=== PATIENT | male | born 1935 | race Caucasian/White ===

== ENCOUNTER 2019-05-03 06:35 | Day surgery (SDC) | payer MEDICARE, OTHER ==
[~2019-05-03] VITALS: Ht 182.9 cm; Wt 83.9 kg
[2019-05-03] MEDS ORDERED: LOSARTAN POTASS25 MG PO (07:15)
[2019-05-03] MEDS ORDERED: OMEPRAZOLE20 MG PO (07:15)
[2019-05-03] MEDS ORDERED: VENTOLIN HFA18 GM INH (07:15)
--- NOTE | 2019-05-03 08:14 | NUR ---
05/03/19 0814 Heydi Berg 0807 PT ARRIVED TO PACU ON 3L VIA MASK, PT WAKES EASILY TO VERBAL STIMULI AND THEN EASILY FALLS BACK TO SLEEP. VSS.
--- NOTE | 2019-05-04 08:38 | OR ---
[facility] [address] [place], [place] [address] Signed DATE OF OPERATION: 05/03/2019 SURGEON: Kingston Parker MD PREOPERATIVE DIAGNOSES: 1. Positive Cologuard test November 2018. 2. Family history of colon cancer (aunt). 3. History of colonic polyps and episodic rectal bleeding. POSTOPERATIVE DIAGNOSES: 1. Polyps x2 (possibly three). 2. Diverticular changes. 3. Internal hemorrhoids. PROCEDURES: Total colonoscopy to cecum with cold snare polypectomy x2 and cold morcellation polypectomy x1. ANESTHESIA: Intravenous sedation fentanyl 100 mcg, Versed 3 mg. INDICATION: This 84-year-old white man is a patient of Dr. Jaycee Naik. Last fall in November. He underwent a Cologuard test, which was positive. It is notably he has had episodic rectal bleeding, but no other bowel problems. He does have family history of colon cancer in aunts. He has undergone polypectomy in [place], [place] in the past, but it has been several years. The patient spent the winter in [place], [place] and has returned and now here for colonoscopy. The viral pandemic has truncated his ability for travel lately, but he appears to be free of any symptoms of coronavirus flu. He is here to undergo colonoscopy on the basis of his positive Cologuard test. He understands the risks of bleeding, infection, and perforation related to colonoscopy and wished to proceed. FINDINGS: The prep was good. Complete colonoscopy was undertaken to the cecum without question. There was a very small mucosal lesion of the ileocecal valve, which was excised with cold morcellation technique. In addition, there was a sessile polyp at splenic flexure and one at 40 cm, both of which were excised with cold snare technique. Retroflexed view confirmed internal hemorrhoidal changes but no evidence of active bleeding or other abnormality. Electronically Signed By: KINGSTON PARKER MD 05/04/19 0838 PATIENT NAME: GEOVANY WOODS OPERATIVE REPORT DATE OF : 39 REPORT #: [id number] PHYSICIAN: KINGSTON PARKER MD PCP: JAYCEE NAIK MD REPORT IS CONFIDENTIAL AND NOT TO BE RELEASED WITHOUT AUTHORIZATION [facility] [address] [place], [place] [address] Signed PROCEDURE IN DETAIL: The patient was brought to the endoscopy suite and placed in lateral decubitus position. With the team fully donned in protective gear of the moment due to the pandemic, he was given intravenous sedation with full cardiopulmonary monitoring. Digital rectal examination was normal. An Olympus video colonoscope was passed in the rectum and manipulated throughout the colon ultimately intubating the cecum itself. The ileocecal valve had a small mucosal lesion, which was suggestive of a polyp. This was excised with cold morcellation technique. It is uncertain if it was truly an adenomatous polyp, however. The scope was withdrawn and approximately splenic flexure a sessile polyp was noted, this was excised with cold snare technique. Specimen passed for pathology. It measured less than a cm certainly. Further withdrawal showed another similar such polyp at 40 cm, this was excised with cold snare technique and retrieved and passed for pathology as well. There were few scattered diverticula of the sigmoid. Upon withdrawal and retroflexed view of the rectum showed internal hemorrhoidal changes as well. There was no sign of bleeding. Scope was removed. The patient was taken to recovery room in good condition. CONCLUSION DIAGNOSIS: Polyps x3. PLAN: Recommend repeat colonoscopy in 3 years, sooner if clinically indicated. He will return to the ongoing care of Dr. Jaycee Naik. Kingston Parker MD JM/MODL /[id number] cc: Jaycee Naik MD Copies: Electronically Signed By: KINGSTON PARKER MD 05/04/19 0838 PATIENT NAME: GEOVANY WOODS OPERATIVE REPORT DATE OF : 39 REPORT #: [id number] PHYSICIAN: KINGSTON PARKER MD PCP: JAYCEE NAIK MD REPORT IS CONFIDENTIAL AND NOT TO BE RELEASED WITHOUT AUTHORIZATION [address] [address] Signed ~ Electronically Signed By: KINGSTON PARKER MD 05/04/19 0838 PATIENT NAME: GEOVANY WOODS OPERATIVE REPORT DATE OF : 39 REPORT #: [id number] PHYSICIAN: KINGSTON PARKER MD PCP: JAYCEE NAIK MD REPORT IS CONFIDENTIAL AND NOT TO BE RELEASED WITHOUT AUTHORIZATION
--- NOTE | 2019-05-04 14:33 | PATH ---
[facility] [address] [place], [place] [address] Signed SPECIMEN(S): A SPLENIC FLEXURE POLYP SPECIMEN(S): B POSSIBLE CECAL POLYP SPECIMEN(S): C COLON POLYP AT 40 CM SPECIMEN SOURCE: A. SPLENIC FLEXURE POLYP B. POSSIBLE CECAL POLYP C. COLON POLYP AT 40 CM CLINICAL HISTORY: Pre Op: Occ. Rectal bleeding, + Cologuard test. Fam Hx colon CA, Hx pt polyps. Post Op: Two polyps, possible 3. MICROSCOPIC DESCRIPTION: Histologic sections of all submitted blocks are examined by light microscopy. These findings, together with the gross examination, support the pathologic diagnosis. FINAL PATHOLOGIC DIAGNOSIS: A. Colon, splenic flexure, polyp, polypectomy: - Fragments of tubular adenoma. - Negative for high-grade dysplasia or malignancy. B. Colon, cecum, possible polyp, polypectomy: - Colonic mucosa with mucosal lymphoid aggregate. - Negative for dysplasia or malignancy. C. Colon, polyp at 40 cm, polypectomy: - Tubular adenoma. - Negative for high-grade dysplasia or malignancy. NAL:glc:C2NR GROSS DESCRIPTION: Three specimens are received in three containers, labeled "LH." A. The specimen, labeled "LH, #1," and designated on the requisition "splenic flexure," is received in formalin and consists of a single davis soft tissue polypoid fragment(s) that measure 0.6 cm in greatest dimension. The specimen is entirely submitted in cassette (A1). B. The specimen, labeled "LH, #2," and designated on the requisition "possible cecal polyp," is received in formalin and consists of a single davis soft tissue fragment(s) that measure 0.3 cm in greatest dimension. The specimen is entirely submitted in cassette (B1). C. The specimen, labeled "LH, #3," and designated on the requisition "colon polyp at 40 cm," is received in formalin and consists of a single davis soft PATIENT NAME: GEOVANY WOODS PATHOLOGY DATE OF : 39 REPORT #: [id number] PHYSICIAN: AC PATHOLOGY PCP: ELLIE MEYER MD REPORT IS CONFIDENTIAL AND NOT TO BE RELEASED WITHOUT AUTHORIZATION [facility] [address] [place], [place] [address] Signed tissue polypoid fragment(s) that measure 0.4 cm in greatest dimension. The specimen is entirely submitted in cassette (C1). AT (under the direct supervision of a pathologist) The Gross Description was prepared using a voice recognition system. The report was reviewed for accuracy; however, sound-alike word errors, addition and/or deletions may occur. If there is any question about this report, please contact Client Services. PERFORMING LABORATORY: The technical component was performed by [facility], [address] [place] [id number] (Volcanology Teacher: Rebecca Callaway MD; CLIA# [id number]). [facility], [address] [address] (CLIA# [id number]). Diagnostician: Usha Tan MD Pathologist Electronically Signed 05/04/2019 Copies: ~ PATIENT NAME: GEOVANY WOODS PATHOLOGY DATE OF : 39 REPORT #: [id number] PHYSICIAN: AC PATHOLOGY PCP: ELLIE MEYER MD REPORT IS CONFIDENTIAL AND NOT TO BE RELEASED WITHOUT AUTHORIZATION
== END 2019-05-03 08:45 | disposition home or self-care (01) ==
LOC: OPS 06:35 → DS 06:42 → OPS 06:45
PROVIDERS: Surgery
PROC: 0DBH8ZZ Excision of Cecum, Via Natural or Artificial Opening Endoscopic (ICD-10-PCS; 2019-05-03)
PROC: 0DBE8ZZ Excision of Large Intestine, Via Natural or Artificial Opening Endoscopic (ICD-10-PCS; 2019-05-03)
PROC: 0DBL8ZZ Excision of Transverse Colon, Via Natural or Artificial Opening Endoscopic (ICD-10-PCS; principal; 2019-05-03 06:45)
DX: D12.3 Benign neoplasm of transverse colon (principal); K57.30 Diverticulosis of large intestine without perforation or abscess without bleeding; K64.8 Other hemorrhoids; J45.909 Unspecified asthma, uncomplicated; I10 Essential (primary) hypertension; K21.9 Gastro-esophageal reflux disease without esophagitis; C43.9 Malignant melanoma of skin, unspecified; Z88.0 Allergy status to penicillin; Z88.1 Allergy status to other antibiotic agents; Z79.899 Other long term (current) drug therapy
CPT/HCPCS: 99153; G0500; J2250; J3010; J7121

== ENCOUNTER 2024-04-16 11:56 | Day surgery (SDC) | payer MEDICARE, OTHER ==
[~2024-04-16] VITALS: Ht 190.5 cm; Wt 86.4 kg
[~2024-04-16 11:56] MED LIST: IBLOOD GLUCOSE TEST STRIP 1 EA TEST VI PRN; LACTATED RINGER'S 1,000 ML IV SCH; LATANOPROST2.5 ML OPTH; LIDOCAINE HCL 1% 5 ML SDV INJ ONE; LOSARTAN POTASS25 MG PO; MIDAZOLAM HCL 5 MG/5 ML VIAL IV PRN; OMEPRAZOLE20 MG PO; VENTOLIN HFA18 GM INH; fentaNYL citrate 100 MCG/2 ML VIAL IV PRN
[2024-04-16 12:22] VITALS: BP 187/73
[2024-04-16] MEDS ORDERED: fentaNYL citrate 100 MCG/2 ML VIAL ONE (12:53)
[2024-04-16] MEDS ORDERED: MIDAZOLAM HCL 5 MG/5 ML VIAL ONE (12:54)
--- NOTE | 2024-04-16 13:53 | NUR ---
04/16/24 1353 Neelima Rivera 1344-PT ARRIVES TO PACU VIA STRETCHER, RESTING ON LT SIDE. PT REACTIVE TO STIMULI BUT RESTING W/ EYES CLOSED, VSS ON RA, RR EVEN AND UNLABORED. PT PASSING GAS.
[2024-04-16 14:16] VITALS: BP 161/72
--- NOTE | 2024-04-17 13:16 | OR ---
[facility] [address] [place], [place] [address] Signed DATE OF OPERATION: 04/16/2024 SURGEON: Kingston Parker MD PREOPERATIVE DIAGNOSES: 1. Colon surveillance. 2. History of polyps and diverticulosis. POSTOPERATIVE DIAGNOSIS: Polyps x4 and diverticulosis. PROCEDURE: Total colonoscopy to cecum with cold morcellation polypectomy x4. ANESTHESIA: Intravenous sedation fentanyl 100 mcg and Versed 4 mg. INDICATION: This 89-year-old white man is a patient of Dr. Naik and underwent colonoscopy in 2019 where he was found to have a tubular adenoma and diverticulosis. He is currently symptom free and has no family history of colon cancer. He had undergone polypectomy in the [facility] area prior to all of that. He is admitted at this time to undergo surveillance colonoscopy despite his advanced age as he is physiologically far younger than 89. He understands the risk of bleeding, infection, and perforation related to colonoscopy and wished to proceed. FINDINGS: The prep was quite good. Complete colonoscopy was undertaken of the cecum. There were numerous diverticula of the sigmoid and left colon. He had four polyps in aggregate, one proximal descending colon, two in the sigmoid and one in the rectosigmoid. He had no other abnormalities than the diverticulosis. DESCRIPTION OF PROCEDURE: The patient was brought to the endoscopy suite and placed in lateral decubitus position, given intravenous sedation to point of slurred speech and nystagmus with full cardiopulmonary monitoring. Digital rectal examination was normal. An Olympus video colonoscope was passed in the rectum and manipulated throughout the colon noting diverticula of the sigmoid and left colon. Scope was ultimately passed to the cecum. The ileocecal valve and appendiceal orifice were normal. Scope was then Electronically Signed By: KINGSTON PARKER MD 04/17/24 1316 PATIENT NAME: GEOVANY WOODS OPERATIVE REPORT DATE OF : 39 REPORT #: [id number] PHYSICIAN: KINGSTON PARKER MD PCP: ELLIE NAIK MD REPORT IS CONFIDENTIAL AND NOT TO BE RELEASED WITHOUT AUTHORIZATION [facility] [address] [place], [place] [address] Signed withdrawn. Examination throughout showed no sign of abnormality to the proximal descending colon where a small polyp was noted. This was excised with cold morcellation technique. Further withdrawal showed diverticula of the sigmoid as well as two obvious adenomatous polyps particularly confirmed by narrow band imaging. Both were excised with cold morcellation technique. Further withdrawal showed rectosigmoid polyps similarly excised. Retroflexed view was undertaken, which was normal. Scope was removed. The patient was taken to the recovery room in good condition. CONCLUDING DIAGNOSIS: Polyps x4, diverticulosis. PLAN: Recommend repeat colonoscopy in seven years if clinically appropriate based on what would be an advanced age of 89 years. Colonoscopy can be undertaken sooner as appropriate. Recommend a high-fiber diet too. He will return to the ongoing care of Dr. Naik. MD SHARON Love/DESEAN /[id number] cc: Dr. Naik Copies: ~ Electronically Signed By: KINGSTON PARKER MD 04/17/24 1316 PATIENT NAME: PEGGYGEOVANY ALLISON OPERATIVE REPORT DATE OF : 39 REPORT #: [id number] PHYSICIAN: KINGSTON PARKER MD PCP: ELLIE NAIK MD REPORT IS CONFIDENTIAL AND NOT TO BE RELEASED WITHOUT AUTHORIZATION
--- NOTE | 2024-04-18 13:16 | PATH ---
[facility] [address] [facility] [place], [place] [address] Signed SPECIMEN(S): A DESCENDING COLON POLYP SPECIMEN(S): B SIGMOID POLYP SPECIMEN(S): C SIGMOID POLYP SPECIMEN(S): D RECTOSIGMOID POLYP SPECIMEN SOURCE: A. DESCENDING COLON POLYP B. SIGMOID POLYP C. SIGMOID POLYP D. RECTOSIGMOID POLYP CLINICAL HISTORY: History of colon polyp. Post : polyp FINAL PATHOLOGIC DIAGNOSIS: A. Ascending colon polyp: - Fragments of hyperplastic polyp. B. Sigmoid polyp: - Tubular adenoma. C. Sigmoid polyp: - Tubular adenoma. D. Rectosigmoid polyp: - Hyperplastic polyp. AMB MICROSCOPIC EXAMINATION: Histologic sections of all submitted blocks are examined by light microscopy. These findings, together with the gross examination, support the pathologic diagnosis. GROSS DESCRIPTION: A. The specimen, labeled and designated "Peggy Green, descending colon polyp," is received in formalin and consists of seven davis soft tissue fragments, ranging from 0.2-0.3 cm. Entirely submitted in (A1). B. The specimen, labeled and designated "Peggy Green, sigmoid polyp," is received in formalin and consists of one davis soft tissue fragment, 0.3 cm. Entirely submitted in (B1). C. The specimen, labeled and designated "Peggy Green, sigmoid polyp #2," is received in formalin and consists of three davis soft tissue fragments, ranging from 0.2-0.3 cm. Entirely submitted in (C1). PATIENT NAME: PEGGYGEOVANY COOPER PATHOLOGY DATE OF : 39 REPORT #: [id number] PHYSICIAN: AC CHOE PCP: ELLIE MEYER MD REPORT IS CONFIDENTIAL AND NOT TO BE RELEASED WITHOUT AUTHORIZATION [facility] [address] [place], [place] [address] Signed D. The specimen, labeled and designated "Peggy Green, rectosigmoid polyp," is received in formalin and consists of two davis soft tissue fragments, ranging from 0.2-0.3 cm. Entirely submitted in (D1). AB (under the direct supervision of a pathologist) The Gross Description was prepared using a voice recognition system. The report was reviewed for accuracy; however, sound-alike word errors, addition and/or deletions may occur. If there is any question about this report, please contact Client Services. ADDITIONAL NOTES: Immunohistochemical and/or in situ hybridization studies if performed in this case included appropriate positive controls that reacted as expected. This test was developed and its performance characteristics determined by [facility]. It has not been cleared or approved by the U.S. Food and Drug Administration. The FDA has determined that such clearance or approval is not necessary. This test is used for clinical purposes. It should not be regarded as investigational or for research. [facility] is certified under the Clinical Laboratory Improvement Amendments of 1988 (CLIA) as qualified to perform high complexity clinical laboratory testing. PERFORMING LABORATORY: Technical component was performed by [facility], [address] [place] [address] (CLIA# [id number]). Professional interpretation was performed by [facility] [address] [place] [id number] Diagnostician: Rebecca Callaway MD Pathologist Electronically Signed 04/18/2024 Copies: ~ PATIENT NAME: GEOVANY GREEN PATHOLOGY DATE OF : 39 REPORT #: [id number] PHYSICIAN: AC PATHOLOGY PCP: ELLIE MEYER MD REPORT IS CONFIDENTIAL AND NOT TO BE RELEASED WITHOUT AUTHORIZATION
== END 2024-04-16 14:28 | disposition home or self-care (01) ==
LOC: DS 11:56
PROVIDERS: ATTEND Surgery
PROC: 0DBN8ZZ Excision of Sigmoid Colon, Via Natural or Artificial Opening Endoscopic (ICD-10-PCS; 2024-04-16)
PROC: 0DBM8ZZ Excision of Descending Colon, Via Natural or Artificial Opening Endoscopic (ICD-10-PCS; principal; 2024-04-16 13:00)
DX: Z12.11 Encounter for screening for malignant neoplasm of colon (principal); D12.5 Benign neoplasm of sigmoid colon; K63.5 Polyp of colon; K57.30 Diverticulosis of large intestine without perforation or abscess without bleeding; I10 Essential (primary) hypertension; Z79.899 Other long term (current) drug therapy; Z88.0 Allergy status to penicillin; Z88.1 Allergy status to other antibiotic agents; Z86.0101 Personal history of adenomatous and serrated colon polyps; Z90.49 Acquired absence of other specified parts of digestive tract
CPT/HCPCS: 88305; 99153; G0500; J2250; J3010; J7121